=== PATIENT | female | born 1995 | race Caucasian/White ===

== ENCOUNTER 2017-04-04 16:02 | Emergency (ER) | payer OTHER ==
[2017-04-04 16:16] VITALS: BP 128/79
--- NOTE | 2017-04-04 19:40 | ERNOTE ---
Integumentary HPI - General Presenting Symptoms: rash Time Seen by Provider: 04/04/17 19:20 Source: patient - Immun/Allergies/Home Medications Immunizations: IMMUNIZATION HX Immunizations Up to Date Yes History of Influenza Vaccine No Hx Pneumococcal Vaccination No Allergies/Adverse Reactions: Allergies Allergy/AdvReac Type Severity Reaction Status Date / Time amoxicillin [Amoxicillin] Allergy Intermediate Anaphylaxis Verified 04/04/17 16: 16 cefaclor [From Ceclor] Allergy Intermediate Anaphylaxis Verified 04/04/17 16:16 penicillin G Allergy Intermediate Anaphylaxis Verified 04/04/17 16:16 Home Medications: HOME MEDICATIONS Aspirin/Acetaminophen/Caffeine [Excedrin Extra Strength] 2 tab PO PRN PRN [Last Taken Unknown] predniSONE [Prednisone] 3 tab PO DAILY #9 tab 04/04/17 [Last Taken Unknown] - History of Present Illness Narrative: Patient is here for a rash that she has had for about two weeks. It started on one of her arms and has spread to all extremities and trunk,sparing her face, nothing on mucus membranes. The circular lesions appear and grow within a couple of days and are itching. She denies any other symptoms, no exposure to new medications, no recent infections. She is combining and exposed to dust. Review of Systems - Review of Systems Constitutional: Absent: recent illness, fever ENT: Present: nose congestion - slight in am. Absent: ear pain, nasal drainage Respiratory: Absent: shortness of breath Cardiology: Absent: chest pain Gastrointestinal/Abdominal: Absent: nausea, vomiting, abdominal pain Genitourinary: Present: no symptoms reported. Absent: frequency, dysuria Musculoskeletal: Absent: back pain Skin: Present: See HPI, rash Neurological: Present: headache - chronic Endocrine: Present: no symptoms reported Hematologic/Lymphatic: Absent: easy bruising - Patient's Past Medical History Patient History - Medical: No pertinent hx Patient History - Cardiac/Respiratory: No pertinent hx Patient History - Cancer: No Hx of Cancer Patient History - Surgical Procedures: T & A Patient History - Other: None LMP (Calendar): 07/24/15 - Family History Mother Family History - Medical: No pertinent hx Family History - Cardiac/Respiratory: No pertinent hx Father Family History - Medical: Anemia Family History - Cardiac/Respiratory: No pertinent hx - Social History Living Situations: home Abuse History: No History of abuse Psych History: No pertinent hx Smoking Status: Never smoker Alcohol Use: none Drug Use: none - Immunizations Immunizations Up to Date: Yes Hx Pneumococcal Vaccination: No History of Influenza Vaccine: No Physical Exam - Physical Exam General Appearance: Present: wd/wn, alert, no apparent distress Head Exam: Present: normal inspection, no evidence of injury Eye Exam: Normal inspection: bilateral Ears, Nose, Throat: Present: normal ENT inspection, normal pharynx, other - normal mucus membranes Neck: Present: normal inspection. Absent: lymphadenopathy (R), lymphadenopathy (L) Respiratory: Present: no respiratory distress, normal breath sounds, no accessory muscle use, lungs clear Cardiovascular/Chest: Present: regular rate, rhythm, no murmur Gastrointestinal/Abdominal: Present: nontender, nondistended, soft Neurological Exam: Present: alert, oriented, normal mood/affect Skin Exam: Present: normal color, warm/dry, skin rash - circular reason 2-3cm with central pealing in some, sharply demarcated on trunk, arms and legs ED Progress - Vital Signs Patient's Vital Signs:: I have reviewed the patient's vital signs. Vital Signs: Vital Signs 04/04/17 16:13 Temperature 36.6 C Pulse Rate 68 Respiratory 16 Rate Blood Pressure 128/79 O2 Sat by Pulse 100 Oximetry - Progress/Reassessment Chief Complaint: Rash Departure Clinical Impression: Erythema multiforme - Departure Disposition: Home self-care Condition: Good Instructions: Erythema Multiforme Additional Instructions: follow up with your doctor, if the rash does not get better over the next week follow up with a rn placement (skin doctor) Prescriptions: predniSONE [Prednisone] 3 tab PO DAILY #9 tab
== END 2017-04-04 19:35 | disposition home or self-care (01) ==
LOC: ER 16:02
DX: L51.9 Erythema multiforme, unspecified (principal)